=== PATIENT | female | born 1990 | race Caucasian/White ===

== ENCOUNTER 2016-08-18 15:13 | Emergency (ER) | payer OTHER ==
[2016-08-18 15:44] VITALS: BP 111/69; PULSE 90; TEMP 97.9; BMI 27.1
[2016-08-18] MEDS ORDERED: CYCLOBENZAPRINE HCL 10 MG TABLET (FP) PO ONE (16:18)
[2016-08-18] MEDS ORDERED: IBUPROFEN 400 MG TABLET (FP) PO ONE ×2 (16:18→16:22)
[2016-08-18] MEDS ORDERED: CYCLOBENZAPRINE HCL 10 MG TABLET (FP) ONE (16:22)
--- NOTE | 2016-08-18 16:25 | PDOC ---
History of Present Illness - General Chief Complaint: Cold Symptoms Stated Complaint: BACK PAIN Time Seen by Provider: 08/18/16 15:52 History Source: Patient Exam Limitations: No Limitations - History of Present Illness Initial Comments: 08/18/16 16:19 25 yr female states she had liposuction in the [place] 6 months ago and has had constant pain to her low back. Pt states she has alump to her low back told it was "extra fluid" that should drain from having massages. Pt states pain is worse when wearing high heels and lying down. Pt denies fever , no abd pain neg urine or bowel dysfunction, no saddle anesthesia or leg pain. Timing/Duration: other (5-6 months ) Past History - Past Medical History Allergies/Adverse Reactions: Allergies Allergy/AdvReac Type Severity Reaction Status Date / Time amoxicillin Allergy Intermediate Verified 08/18/16 15:41 Penicillins Allergy Mild RED & Verified 08/18/16 15:41 SWOLLEN. Home Medications: Ambulatory Orders Cyclobenzaprine HCl [Flexeril -] 10 mg PO TID PRN #21 tablet 08/18/16 Naproxen [Naprosyn -] 500 mg PO BID PRN #14 tablet 08/18/16 GI Disorders: Yes (IBS; NOT ON MEDS) Suicide Attempt (Hx): No - Surgical History Other Surgical History: 08/18/16 16:25 liposuction - Immunization History Immunization Up to Date: Yes - Psycho/Social/Smoking Cessation Hx Anxiety: Yes Suicidal Ideation: No Smoking Status: No Smoking History: Never smoked Have you smoked in the past 12 months: No Number of Cigarettes Smoked Daily: 0 Cigars Per Day: 0 Hx Alcohol Use: No Drug/Substance Use Hx: No Substance Use Type: Alcohol Review of Systems - Review of Systems Able to Perform ROS?: Yes Is the patient limited Liberian proficient: No Constitutional: No: Symptoms Reported HEENTM: No: Symptoms Reported Respiratory: No: Symptoms reported Cardiac (ROS): No: Symptoms Reported ABD/GI: No: Symptoms Reported : No: Symptoms Reported Musculoskeletal: Yes: Symptoms Reported, Back Pain Integumentary: No: Symptoms Reported Neurological: No: Symptoms reported *Physical Exam - Vital Signs Last Vital Signs Temp Pulse Resp BP Pulse Ox 97.9 F 90 20 111/69 99 08/18/16 15:42 08/18/16 15:42 08/18/16 15:42 08/18/16 15:42 08/18/16 15:42 - Physical Exam General Appearance: Yes: Nourished, Appropriately Dressed HEENT: positive: EOMI, RADHA Neck: positive: Supple. negative: Tender Respiratory/Chest: positive: Lungs Clear, Normal Breath Sounds Cardiovascular: positive: Regular Rhythm, Regular Rate Gastrointestinal/Abdominal: positive: Normal Bowel Sounds, Soft. negative: Tender Lymphatic: negative: Adenopathy Musculoskeletal: positive: Normal Inspection, Muscle Spasm (slight spasm to left lower lumbar paraspinal muscle ), Vertebral Tenderness (lumbar spine neg vetebral tenderness, multiple palpable soft tissue lumps , no fluctuance or evidence of abscess) Extremity: positive: Normal Capillary Refill, Normal Inspection, Normal Range of Motion Integumentary: positive: Normal Color, Dry, Warm, Other (skin intact, no redness no palpable fluctuance ) Neurologic: positive: Fully Oriented, Alert, Normal Mood/Affect, Normal Response , Motor Strength 11/21 ED Treatment Course - RADIOLOGY Radiology Studies Ordered: Category Date Time Status SPINE-LUMBAR ONLY [RAD] Stat Radiology 08/18/16 16:18 Ordered Medical Decision Making - Medical Decision Making 08/18/16 16:28 cc: low back pain for 5-6 months after having "aggressive liposuction in [place]" states patient. she states she had retained fluid and was told to have lymphatic drainage massages, however pt states she has noticed small lumps in her lower back that are not going away and causing pain everyday pt is requesting an MRI pt has no evidence of infection, no evidence of spinal cord damage or neurovascular compromise, pt denies numbness or tingling to legs or arms I have discussed that MRI is not indicated in the ER at this time. I will get a plain film xray and give pt medication for pain and spasm Pt has no neuro complaints, no bowel or bladder dysfunction 08/18/16 17:24 xray is negative and I have referred the patient to plastic surgery for follow up pt is ambulatory with steady gait all questions asked and answered on discharge 08/18/16 17:41 08/18/16 17:43 *DC/Admit/Observation/Transfer Diagnosis at time of Disposition: Low back pain Qualifiers: Chronicity: acute Back pain laterality: midline Sciatica presence: without sciatica Qualified Code(s): M54.5 - Low back pain - Discharge Dispostion Disposition: HOME Condition at time of disposition: Good - Prescriptions Prescriptions: Cyclobenzaprine HCl [Flexeril -] 10 mg PO TID PRN #21 tablet PRN Reason: Muscle Spasms Naproxen [Naprosyn -] 500 mg PO BID PRN #14 tablet PRN Reason: Back Pain - Referrals Referrals: Shayy Mckeon MD [Primary Care Provider] - Mark Bingham MD [Staff Physician] - - Patient Instructions Additional Instructions: follow up with your medical doctor or with the plastic surgeon take the anti inflamatory pain medicine and muscle relaxant as needed
== END 2016-08-18 17:39 | disposition home or self-care (01) ==
LOC: JERFT 15:13
DX: G89.28 Other chronic postprocedural pain (principal); M54.5 Low back pain
CPT/HCPCS: 72100-TC; 99281-25

== ENCOUNTER 2017-07-23 16:55 | Inpatient (IN) | payer OTHER ==
[2017-07-23 17:12] VITALS: BMI 29.2
[2017-07-23] MEDS ORDERED: ONDANSETRON 4 MG/2 ML VIAL ONE (17:25)
[2017-07-23] MEDS ORDERED: LORazepam 2 MG/ML SDV VIAL ONE (17:25)
[2017-07-23] MEDS ORDERED: ONDANSETRON 4 MG/2 ML VIAL IVPUSH ONE (17:25)
[2017-07-23] MEDS ORDERED: SODIUM CHLORIDE 1,000 ML IV STA (17:25)
--- NOTE | 2017-07-23 17:37 | PDOC ---
History of Present Illness - General Chief Complaint: Psychiatric Stated Complaint: ANXIETY Time Seen by Provider: 07/23/17 17:10 History Source: Patient Exam Limitations: No Limitations - History of Present Illness Initial Comments: 26-year-old female presents the emergency room with complaints of generalized anxiety, mild nausea, insomnia, and decreased appetite worsening over the past 2 days. Patient states has history of anxiety and was recently placed on Lexapro her PCP. Patient also states was drinking alcohol daily to deal with anxiety but states did not drink since yesterday and now her symptoms have worsened. Patient states works at night and feels the environment along with her lifestyle is causing his symptoms to worsen. Patient denies feelings to hurt herself or others. Timing/Duration: getting worse Severity: moderate Associated Symptoms: anxiety, insomnia Past History - Past Medical History Allergies/Adverse Reactions: Allergies amoxicillin Allergy (Intermediate, Verified 07/23/17 17:04) Penicillins Allergy (Mild, Verified 07/23/17 17:04) RED & SWOLLEN. Home Medications: Ambulatory Orders Diazepam [Valium] 5 mg PO ASDIR 07/23/17 Escitalopram Oxalate [Lexapro -] 10 mg PO DAILY 07/23/17 Psychosocial History: Yes: anxiety, panic attacks Surgical History: Yes: No Surgical History LMP: 02/28/13 - Immunization History Immunization Up to Date: Yes Tetanus Status: Less than 5 years - Social History Smoking History: No Smoking Status: Never smoked Number of Cigarettes Per Day: 0 Cigars Per Day: 0 Alcohol Use: none Drug Use: none Patient Lives Alone: No Lives With: parents *Review of Systems - Review of Systems Able to Perform ROS?: Yes Constitutional: No: Symptoms Reported HEENTM: No: Symptoms Reported Respiratory: No: Symptoms reported Cardiac (ROS): No: Symptoms Reported ABD/GI: Yes: Nausea : No: Symptoms Reported Musculoskeletal: No: Symptoms Reported Integumentary: No: Symptoms Reported Neurological: No: Symptoms reported Psychiatric: Yes: Anxiety, Stressors, Sleep Pattern Change *Physical Exam - Vital Signs Last Vital Signs Temp Pulse Resp BP Pulse Ox 97.8 F 100 H 158 H 144/79 100 07/23/17 17:04 07/23/17 17:04 07/23/17 17:04 07/23/17 17:04 07/23/17 17:04 - Physical Exam General Appearance: Yes: Nourished, Appropriately Dressed. No: Apparent Distress Neck: positive: Supple Respiratory/Chest: positive: Lungs Clear, Normal Breath Sounds. negative: Respiratory Distress, Accessory Muscle Use Cardiovascular: positive: Regular Rhythm, Tachycardia. negative: Murmur Gastrointestinal/Abdominal: positive: Soft. negative: Tenderness Extremity: positive: Normal Capillary Refill. negative: Pedal Edema Integumentary: positive: Normal Color, Warm, Moist Neurologic: positive: Normal Mood/Affect (anxious, tense, good eye contact), Motor Strength 5/5 Plan - Progress Note Progress Note: 07/23/17 17:41 Patient with history of anxiety with complaints of worsening anxiety withdrawal from alcohol, and no improvement after just briefly starting Lexapro by Dr. Mckeon yesterday. Patient also with progressively worsening waking and states her breast implants cause more discomfort due to the weight of them along with her weight gain. Patient concerning for thyroid and metabolic etiology. Patient for CBC, comp, magnesium thyroid level, urine along with Zofran at a band and fluids. Patient likely also have a mild withdrawal from alcohol and benzos 07/23/17 18:57 Case just discussed with Dr. Donald and states patient would likely benefit from benzo which are all and alcohol withdrawal and consider psychiatric rehabilitation. He is recommending to add an alcohol level and drug toxicology. 07/23/17 18:58 Laboratory Tests 07/23/17 07/23/17 07/23/17 17:39 17:39 18:30 WBC 6.8 Hgb 13.6 Hct 40.2 MCV 94.0 Plt Count 339 Neutrophils % 71.1 Sodium 140 Potassium 4.1 Chloride 107 Anion Gap 8 BUN 14 Creatinine 0.8 D Random Glucose 123 H D Calcium 9.1 Magnesium 2.2 Total Bilirubin 0.5 D AST 50 H D ALT 100 H D TSH 1.86 Serum , Qual Negative - Order(s) Order(s): Orders Medication Instructions Recorded Diazepam [Valium] 5 mg PO ASDIR 07/23/17 Escitalopram Oxalate [Lexapro -] 10 mg PO DAILY 07/23/17 Orders last 12 hours Category Date Time Status CBC WITH DIFFERENTIAL Stat Lab 07/23/17 17:25 Ordered HCG,QUALITATIVE URINE Stat Lab 07/23/17 17:25 Ordered URINALYSIS ([facility] ONLY) Stat Lab 07/23/17 17:25 Ordered - Laboratory CBC & Chemistry Diagram: 07/24/17 07:20 07/23/17 17:39 *DC/Admit/Observation/Transfer Diagnosis at time of Disposition: Anxiety, Withdrawal from benzodiazepine, Alcohol withdrawal - Referrals - Patient Instructions - Post Discharge Activity
[2017-07-23 17:46] LABS: BASO % 0.7 % (0-2.0); EOS % 1.1 % (0-4.5); HEMATOCRIT 40.2 % (32.4-45.2); HEMOGLOBIN 13.6 GM/dL (10.7-15.3); MCH 31.8 pg (25.7-33.7); MCHC 33.8 g/dl (32.0-36.0); MEAN PLT VOLUME 7.8 fl (7.5-11.1); MONO % 6.1 % (3.8-10.2); NEUT % 71.1 % (42.8-82.8); PLATELET COUNT 339 K/MM3 (134-434); RBC 4.28 M/mm3 (3.60-5.2); RDW 12.9 % (11.6-15.6); WHITE BLOOD COUNT 6.8 K/mm3 (4.0-10.0)
[2017-07-23 18:16] LABS: ALBUMIN 3.9 g/dl (3.4-5.0); ANION GAP 8 (8-16); BLOOD UREA NITROGEN 14 mg/dL (7-18); CALCIUM 9.1 mg/dL (8.5-10.1); CHLORIDE 107 mmol/L (98-107); CO2 25 mmol/L (21-32); CREATININE 0.8 mg/dL (0.55-1.02); GLUCOSE,RANDOM 123 mg/dL (74-106); MAGNESIUM 2.2 mg/dL (1.8-2.4); POTASSIUM 4.1 mmol/L (3.5-5.1); SGOT/AST 50 U/L (15-37); SGPT/ALT 100 U/L (12-78); SODIUM 140 mmol/L (136-145)
[2017-07-23 18:26] LABS: ALK PHOS 62 U/L (45-117); BILIRUBIN,TOTAL 0.5 mg/dL (0.2-1.0); TOT PROT 7.8 g/dl (6.4-8.2)
--- NOTE | 2017-07-23 18:45 | PDOC ---
*Physical Exam - Vital Signs Last Vital Signs Temp Pulse Resp BP Pulse Ox 97.8 F 100 H 158 H 144/79 100 07/23/17 17:04 07/23/17 17:04 07/23/17 17:04 07/23/17 17:04 07/23/17 17:04 ED Treatment Course - LABORATORY CBC & Chemistry Diagram: 07/23/17 17:39 07/23/17 17:39 - ADDITIONAL ORDERS Additional order review: Laboratory Results 07/23/17 07/23/17 18:30 17:39 Sodium 140 Potassium 4.1 Chloride 107 Carbon Dioxide 25 Anion Gap 8 BUN 14 Creatinine 0.8 D Creat Clearance w eGFR > 60 Random Glucose 123 H D Calcium 9.1 Magnesium 2.2 Total Bilirubin 0.5 D AST 50 H D ALT 100 H D Alkaline Phosphatase 62 Total Protein 7.8 Albumin 3.9 TSH 1.86 Serum , Qual Negative 07/23/17 17:39 RBC 4.28 MCV 94.0 MCHC 33.8 RDW 12.9 MPV 7.8 Neutrophils % 71.1 Lymphocytes % 21.0 Monocytes % 6.1 Eosinophils % 1.1 Basophils % 0.7 - Medications Given in the ED: ED Medications Discontinued Medications Generic Name Dose Route Start Last Admin Trade Name Freq PRN Reason Stop Dose Admin Sodium Chloride 1,000 mls @ 1,000 mls/hr 07/23/17 17:25 07/23/17 17:41 Normal Saline - IV 07/23/17 18:24 1,000 mls/hr ASDIR STA Administration Lorazepam 1 mg 07/23/17 17:25 07/23/17 17:41 Ativan Injection - IVPUSH 07/23/17 17:26 1 mg ONCE ONE Administration Ondansetron HCl 4 mg 07/23/17 17:25 07/23/17 17:41 Zofran Injection IVPUSH 07/23/17 17:26 4 mg ONCE ONE Administration Medical Decision Making - Medical Decision Making 07/23/17 18:45 Pt seen by the Advanced Practice Provider under my direct supervision Ancillary studies reviewed I agree with plan as outlined by the Advanced Practice Provider *DC/Admit/Observation/Transfer Diagnosis at time of Disposition: Anxiety Withdrawal from benzodiazepine Qualifiers: Complication of substance-induced condition: with unspecified complication Qualified Code(s): F13.239 - Sedative, hypnotic or anxiolytic dependence with withdrawal, unspecified Alcohol withdrawal Qualifiers: Complication of substance-induced condition: uncomplicated Qualified Code(s): F10.230 - Alcohol dependence with withdrawal, uncomplicated - Referrals - Patient Instructions - Post Discharge Activity - Attestations Physician Attestion: 07/23/17 22:00 I, Dr. Harjinder Vazquez MD, attest that this document has been prepared under my direction and personally reviewed by me in its entirety. I further attest, that it accurately reflects all work, treatment, procedures and medical decision -making performed by me.
--- NOTE | 2017-07-23 19:21 | PDOC ---
*Physical Exam - Vital Signs Last Vital Signs Temp Pulse Resp BP Pulse Ox 97.8 F 100 H 158 H 144/79 100 07/23/17 17:04 07/23/17 17:04 07/23/17 17:04 07/23/17 17:04 07/23/17 17:04 - Physical Exam General Appearance: Yes: Appropriately Dressed Cardiovascular: positive: Tachycardia Neurologic: positive: Fully Oriented, Alert ED Treatment Course - LABORATORY CBC & Chemistry Diagram: 07/23/17 17:39 07/23/17 17:39 - ADDITIONAL ORDERS Additional order review: Laboratory Results 07/23/17 07/23/17 18:30 17:39 Sodium 140 Potassium 4.1 Chloride 107 Carbon Dioxide 25 Anion Gap 8 BUN 14 Creatinine 0.8 D Creat Clearance w eGFR > 60 Random Glucose 123 H D Calcium 9.1 Magnesium 2.2 Total Bilirubin 0.5 D AST 50 H D ALT 100 H D Alkaline Phosphatase 62 Total Protein 7.8 Albumin 3.9 TSH 1.86 Serum , Qual Negative 07/23/17 17:39 RBC 4.28 MCV 94.0 MCHC 33.8 RDW 12.9 MPV 7.8 Neutrophils % 71.1 Lymphocytes % 21.0 Monocytes % 6.1 Eosinophils % 1.1 Basophils % 0.7 - Medications Given in the ED: ED Medications Discontinued Medications Generic Name Dose Route Start Last Admin Trade Name Freq PRN Reason Stop Dose Admin Sodium Chloride 1,000 mls @ 1,000 mls/hr 07/23/17 17:25 07/23/17 17:41 Normal Saline - IV 07/23/17 18:24 1,000 mls/hr ASDIR STA Administration Lorazepam 1 mg 07/23/17 17:25 07/23/17 17:41 Ativan Injection - IVPUSH 07/23/17 17:26 1 mg ONCE ONE Administration Ondansetron HCl 4 mg 07/23/17 17:25 07/23/17 17:41 Zofran Injection IVPUSH 07/23/17 17:26 4 mg ONCE ONE Administration Progress Note - Progress Note Progress Note: A: anxiety. alcohol withdrawal P: librium. IVF Medical Decision Making - Medical Decision Making 07/23/17 19:56 Patient appears anxious. reports using alcohol two days ago. patient reports everyday use of alcohol to manage anxiety . patient also reports taking xanax for anxiety 07/23/17 19:57 07/23/17 20:[address] Wilks for obs. 07/23/17 20:25 *DC/Admit/Observation/Transfer Diagnosis at time of Disposition: Anxiety Withdrawal from benzodiazepine Qualifiers: Complication of substance-induced condition: with unspecified complication Qualified Code(s): F13.239 - Sedative, hypnotic or anxiolytic dependence with withdrawal, unspecified Alcohol withdrawal Qualifiers: Complication of substance-induced condition: uncomplicated Qualified Code(s): F10.230 - Alcohol dependence with withdrawal, uncomplicated - Discharge Dispostion Admit: Yes - Referrals Referrals: Shayy Mckeon MD [Primary Care Provider] - - Patient Instructions - Post Discharge Activity
[2017-07-23] MEDS ORDERED: chlordiazePOXIDE HCL 25 MG CAPSULE PO ONE (19:44)
[2017-07-23] MEDS ORDERED: chlordiazePOXIDE HCL 25 MG CAPSULE ONE (20:09)
[2017-07-23 20:21] LABS: URINE APPEARANCE CLEAR; URINE BILIRUBIN NEGATIVE (NEGATIVE); URINE BLOOD NEGATIVE (NEGATIVE); URINE COLOR COLORLESS; URINE GLUCOSE (UA) NEGATIVE (NEGATIVE); URINE KETONE NEGATIVE (NEGATIVE); URINE LEUK ESTERASE NEGATIVE (NEGATIVE); URINE NITRITE NEGATIVE (NEGATIVE); URINE PROTEIN NEGATIVE (NEGATIVE); URINE UROBILINOGEN NEGATIVE mg/dL (0.2-1.0)
[2017-07-23 20:39] LABS: HCG,QUALITATIVE URINE NEGATIVE
[2017-07-23 20:46] LABS: COCAINE, UR NEGATIVE ng/ml (CUTOFF=300); METHADONE, UR NEGATIVE ng/ml (CUTOFF=300); OPIATES, URI NEGATIVE ng/ml (CUTOFF=300); PHENCYCLIDINE,URINE NEGATIVE ng/ml (CUTOFF=25); URINE AMPHETAMINES NEGATIVE ng/ml (CUTOFF=500); URINE BARBITURATES NEGATIVE ng/ml (CUTOFF=200); URINE BENZODIAZEPINES NEGATIVE ng/ml (CUTOFF=200)
--- NOTE | 2017-07-23 23:04 | HP ---
CHIEF COMPLAINT: Anxiety PCP: Linda HISTORY OF PRESENT ILLNESS: This is a 26 year old female with a past medical history of anxiety and depression. Pt reports that she has been increasingly anxious over the past few weeks. She was seen by Dr. Mckeon who started her on lexapro and valium PRN. She did not start either as she knew that she would be drinking excessively over the . She took her first dose of lexapro today. She is also concerned that she is in withdrawal as she stopped drinking. her last drink was late Thursday night/early Thursday morning. Today she has been increasingly anxious with 2 episodes vomiting. + nausea, + mild hand tremor at rest. ER course was notable for: (1) given ativan 1mg IVP @ 540p (2) given librium 25mg po @ 830p Recent Travel: pt denies PAST MEDICAL HISTORY: depression/anxiety PAST SURGICAL HISTORY: breast implants Social History: Smoking: pt denies Alcohol: daily one bottle of wine until yesterday Drugs: pt denies Family History: mother with anxiety depression father unk no siblings Allergies amoxicillin Allergy (Intermediate, Verified 07/23/17 17:04) Penicillins Allergy (Mild, Verified 07/23/17 17:04) RED & SWOLLEN. HOME MEDICATIONS: 3 Medication Instructions Recorded Diazepam [Valium] 5 mg PO ASDIR 07/23/17 Escitalopram Oxalate [Lexapro -] 10 mg PO DAILY 07/23/17 REVIEW OF SYSTEMS CONSTITUTIONAL: Absent: fever, chills, diaphoresis, generalized weakness, malaise, loss of appetite, weight change HEENT: Absent: rhinorrhea, nasal congestion, throat pain, throat swelling, difficulty swallowing, mouth swelling, ear pain, eye pain, visual changes CARDIOVASCULAR: Absent: chest pain, syncope, palpitations, irregular heart rate, lightheadedness , peripheral edema RESPIRATORY: Absent: cough, shortness of breath, dyspnea with exertion, orthopnea, wheezing, stridor, hemoptysis GASTROINTESTINAL: Present: nausea, vomiting Absent: abdominal pain, abdominal distension, diarrhea, constipation, melena, hematochezia GENITOURINARY: Absent: dysuria, frequency, urgency, hesitancy, hematuria, flank pain, genital pain MUSCULOSKELETAL: Absent: myalgia, arthralgia, joint swelling, back pain, neck pain SKIN: Absent: rash, itching, pallor HEMATOLOGIC/IMMUNOLOGIC: Absent: easy bleeding, easy bruising, lymphadenopathy, frequent infections ENDOCRINE: Absent: unexplained weight gain, unexplained weight loss, heat intolerance, cold intolerance NEUROLOGIC: Absent: headache, focal weakness or paresthesias, dizziness, unsteady gait, seizure, mental status changes, bladder or bowel incontinence PSYCHIATRIC: Present: anxiety Absent: depression, suicidal or homicidal ideation, hallucinations. PHYSICAL EXAMINATION Vital Signs - 24 hr 3 07/23/17 17:04 Temperature 97.8 F Pulse Rate 100 H Respiratory 158 H Rate Blood Pressure 144/79 O2 Sat by Pulse 100 Oximetry (%) GENERAL: Awake, alert, and fully oriented, in no acute distress. HEAD: Normal with no signs of trauma. EYES: Pupils equal, round and reactive to light, extraocular movements intact, sclera anicteric, conjunctiva clear. No lid lag. EARS, NOSE, THROAT: Ears normal, nares patent, oropharynx clear without exudates. Moist mucous membranes. NECK: Normal range of motion, supple without lymphadenopathy, JVD, or masses. LUNGS: Breath sounds equal, clear to auscultation bilaterally. No wheezes, and no crackles. No accessory muscle use. HEART: Regular rate and rhythm, normal S1 and S2 without murmur, rub or gallop. ABDOMEN: Soft, nontender, not distended, normoactive bowel sounds, no guarding, no rebound, no masses. No hepatomegaly or splenomegaly. MUSCULOSKELETAL: Normal range of motion at all joints. No bony deformities or tenderness. No CVA tenderness. UPPER EXTREMITIES: 2+ pulses, warm, well-perfused. No cyanosis. No clubbing. No peripheral edema. LOWER EXTREMITIES: 2+ pulses, warm, well-perfused. No calf tenderness. No peripheral edema. NEUROLOGICAL: Cranial nerves II-XII intact. Normal speech. Normal gait. mild tremor noted to hands with outstretched hands PSYCHIATRIC: Cooperative. Good eye contact. Appropriate mood and affect. SKIN: Warm, dry, normal turgor, no rashes or lesions noted, normal capillary refill. Laboratory Results - last 24 hr 3 07/23/17 07/23/17 07/23/17 17:39 17:39 18:30 WBC 6.8 RBC 4.28 Hgb 13.6 Hct 40.2 MCV 94.0 MCH 31.8 MCHC 33.8 RDW 12.9 Plt Count 339 MPV 7.8 Neutrophils % 71.1 Lymphocytes % 21.0 Monocytes % 6.1 Eosinophils % 1.1 Basophils % 0.7 Sodium 140 Potassium 4.1 Chloride 107 Carbon Dioxide 25 Anion Gap 8 BUN 14 Creatinine 0.8 D Creat Clearance w eGFR > 60 Random Glucose 123 H D Calcium 9.1 Magnesium 2.2 Total Bilirubin 0.5 D AST 50 H D ALT 100 H D Alkaline Phosphatase 62 Total Protein 7.8 Albumin 3.9 TSH 1.86 Serum , Qual Negative Urine Color Urine Appearance Urine pH Ur Specific [place] Urine Protein Urine Glucose (UA) Urine Ketones Urine Blood Urine Nitrite Urine Bilirubin Urine Urobilinogen Urine HCG, Qual Opiates Screen Methadone Screen Barbiturate Screen Phencyclidine Screen Ur Amphetamines Screen MDMA (Ecstasy) Screen Benzodiazepines Screen Cocaine Screen U Marijuana (THC) Screen Alcohol, Quantitative 3 07/23/17 07/23/17 07/23/17 19:30 20:00 20:00 WBC RBC Hgb Hct MCV MCH MCHC RDW Plt Count MPV Neutrophils % Lymphocytes % Monocytes % Eosinophils % Basophils % Sodium Potassium Chloride Carbon Dioxide Anion Gap BUN Creatinine Creat Clearance w eGFR Random Glucose Calcium Magnesium Total Bilirubin AST ALT Alkaline Phosphatase Total Protein Albumin TSH Serum , Qual Urine Color Colorless Urine Appearance Clear Urine pH 6.0 Ur Specific [place] 1.006 Urine Protein Negative Urine Glucose (UA) Negative Urine Ketones Negative Urine Blood Negative Urine Nitrite Negative Urine Bilirubin Negative Urine Urobilinogen Negative Urine HCG, Qual Negative Opiates Screen Negative Methadone Screen Negative Barbiturate Screen Negative Phencyclidine Screen Negative Ur Amphetamines Screen Negative MDMA (Ecstasy) Screen Negative Benzodiazepines Screen Negative Cocaine Screen Negative U Marijuana (THC) Screen Negative Alcohol, Quantitative < 5.0 ASSESSMENT/PLAN: 26yF with PMH anxiety/depression presented to the ED with anxiety and possible ETOH withdrawal. anxiety - feeling slightly better after ativan - will monitor off further benzos as they will mask withdrawal - hydroxyzine 25mg q6h prn for anxiety - cont lexapro Possible ETOH withdrawal - current CIWA score 6 - will monitor off benzos - start librium protocol if score rises Palipitations - HR regular, will order ECG DVT PPX - deferred as anticipated LOS <48h FEN - pt requesting IVF, will give 100cc/hr x 1 more liter - bmp in am - regular diet as tolerated Dispo: pt currently requires overnight monitoring for management of her emergent condition. Addendum: 0400 Pt reassessed. CIWA score now 4, last benzo was librium at 830PM. Reports feeling anxious and having trouble sleeping. Long discussion with pt and mother regarding risks/benefits of benzos including risk of abuse and addiction potential, especially given her drinking. Discussed using hydroxyzine instead and they agreed to try it. Will give hydroxyzine. Doubtful if pt in alcohol withdrawal. Pt is very concerned about her breast implants. She states that she had them placed and then gained weight and now they are very heavy and she feels as if she has 15 pounds sitting on her chest when she lays on her back. She wants them removed. She is requesting plastic surgery consult. I advised her and her mother as this is not an urgent matter it should be done as an outpatient and there is no current indication for inpatient plastic surgery consult. They understood. Visit type - Emergency Visit Emergency Visit: Yes ED Registration Date: 07/23/17 Care time: The patient presented to the Emergency Department on the above date and was hospitalized for further evaluation of their emergent condition. - New Patient This patient is new to me today: Yes Date on this admission: 07/24/17 - Critical Care Critical Care patient: No
[2017-07-24] MEDS: SODIUM CHLORIDE 1,000 ML IV SCH ×2 (00:22→23:28)
[2017-07-24] MEDS: hydrOXYzine HCL 25 MG TABLET (FP) PO PRN (04:49)
[2017-07-24 07:37] LABS: BASO % 0.5 % (0-2.0); EOS % 0.8 % (0-4.5); HEMATOCRIT 36.6 % (32.4-45.2); HEMOGLOBIN 12.3 GM/dL (10.7-15.3); LYMPH % 24.6 % (8-40); MCH 31.6 pg (25.7-33.7); MCHC 33.5 g/dl (32.0-36.0); MEAN CELL VOLUME 94.5 fl (80-96); MEAN PLT VOLUME 7.9 fl (7.5-11.1); MONO % 6.2 % (3.8-10.2); NEUT % 67.9 % (42.8-82.8); PLATELET COUNT 306 K/MM3 (134-434); RBC 3.88 M/mm3 (3.60-5.2); RDW 12.7 % (11.6-15.6); WHITE BLOOD COUNT 10.1 K/mm3 (4.0-10.0)
[2017-07-24 08:55] LABS: ANION GAP 11 (8-16); BLOOD UREA NITROGEN 12 mg/dL (7-18); CALCIUM 8.6 mg/dL (8.5-10.1); CHLORIDE 107 mmol/L (98-107); CO2 23 mmol/L (21-32); CREATININE 0.8 mg/dL (0.55-1.02); GLUCOSE,RANDOM 89 mg/dL (74-106); MAGNESIUM 2.1 mg/dL (1.8-2.4); PHOSPHOROUS 4.2 mg/dL (2.5-4.9); POTASSIUM 3.9 mmol/L (3.5-5.1); SODIUM 141 mmol/L (136-145)
--- NOTE | 2017-07-24 10:25 | EKG ---
Test Reason : Blood Pressure : / mmHG Vent. Rate : 088 BPM Atrial Rate : 088 BPM P-R Int : 136 ms QRS Dur : 086 ms QT Int : 360 ms P-R-T Axes : 019 033 010 degrees QTc Int : 435 ms NORMAL SINUS RHYTHM NORMAL ECG WHEN COMPARED WITH ECG OF 26-DEC-2014 11:23, NO SIGNIFICANT CHANGE WAS FOUND Confirmed by DUSTIN CHAN MD ([id number]) on 07/24/2017 10:25:06 AM Referred By: Confirmed By:DUSTIN CHAN MD
[2017-07-24] MEDS: ESCITALOPRAM OXALATE 10 MG TABLET (FP) PO SCH (10:35)
--- NOTE | 2017-07-24 12:46 | CON.PSY ---
Psychiatry Consult Chief Complaint: Patient with a history of Alcohol abuse , agarophobia. Came ahsan with acute anxirty and agitation. patient seen and spoke to her MOM. Symptoms: reports: Irritability, Anxiety, Panic Attacks - Previous Psychiatric Treatment Outpatient: Less than 6 mos ago Inpatient: None - Previous Substance Abuse Treatment Outpatient: None Inpatient: None - Reason for Previous Treatment Reason for Previous Treatment: Anxiety or Panic Disorder - Current Medications Current Medications: Active Medications Escitalopram Oxalate (Lexapro -) 10 mg PO DAILY [facility] Last Admin: 07/24/17 10:35 Dose: 10 mg Hydroxyzine HCl (Atarax -) 25 mg PO Q6H PRN PRN Reason: FOR ITCHING Last Admin: 07/24/17 04:49 Dose: 25 mg Sodium Chloride (Normal Saline -) 1,000 mls @ 100 mls/hr IV ASDIR [facility] Last Admin: 07/24/17 00:22 Dose: 100 mls/hr - Allergies Allergies: Allergies Allergy/AdvReac Type Severity Reaction Status Date / Time amoxicillin Allergy Intermediate Verified 07/23/17 17:04 Penicillins Allergy Mild RED & Verified 07/23/17 17:04 SWOLLEN. - Current Living Status Usual Living Arrangement: With Parent - Current Mental Status Evaluation Appearance: Well Groomed Attitude: Cooperative - Affect Affect: Full Range, Constrictive Appropriateness: Appropriate to Content - Mood Mood: Anxious - Speech/Language Expressive: Coherent - Psychomotor Activity Psychomotor Activity: Normal - Thought Process Thought Process: Intact - Thought Content Hallucinations: Absent Delusions: Absent - Self Perception Self Perception: No Impairment - Cognition Attention: Alert Orientation: Time Memory, Immediate Recall: Intact Memory, Short Term: 3/3 Memory, Remote with Promptin/3 - Concentration Serial Sevens Intact: No Simple Calculations Intact: No - Abstraction Proverb Interpretation: Intact Judgement: Minimally Impaired - Insight Insight: Intact - Impulse Control Impulse Control: Minimally Impaired - Suicidal Ideation Suicidal Ideation: No - Homicidal Ideation Homicidal Ideation: No Assessment/Plan 1) continue with Lexapro. 2) Librium 25mg po od (10 tabs) 3) Follow up with Pvt therapist for anxiety
[2017-07-24] MEDS ORDERED: chlordiazePOXIDE HCL 25 MG CAPSULE PO ONE (13:20)
[2017-07-24] MEDS ORDERED: chlordiazePOXIDE HCL 25 MG CAPSULE ONE ×2 (13:22→17:24)
[2017-07-24] MEDS ORDERED: ACETAMINOPHEN 325 MG TABLET (FP) PO PRN (13:33)
--- NOTE | 2017-07-24 13:35 | PN ---
Progress Note, Physician Chief Complaint: ANXIOUS AND CRYING EXTREMELY LABILE MOM AND BOYFRIEND BEDSIDE - Current Medication List Current Medications: Active Medications Escitalopram Oxalate (Lexapro -) 10 mg PO DAILY [facility] Last Admin: 07/24/17 10:35 Dose: 10 mg Hydroxyzine HCl (Atarax -) 25 mg PO Q6H PRN PRN Reason: FOR ITCHING Last Admin: 07/24/17 04:49 Dose: 25 mg Sodium Chloride (Normal Saline -) 1,000 mls @ 100 mls/hr IV ASDIR [facility] Last Admin: 07/24/17 00:22 Dose: 100 mls/hr - Objective Vital Signs: Vital Signs Temperature 98.2 F 07/24/17 09:11 Pulse Rate 80 07/24/17 09:11 Respiratory Rate 18 07/24/17 09:11 Blood Pressure 110/64 07/24/17 09:11 O2 Sat by Pulse Oximetry (%) 99 07/24/17 09:11 Constitutional: Yes: Anxious, Moderate Distress Eyes: Yes: WNL HENT: Yes: WNL Neck: Yes: WNL Cardiovascular: Yes: WNL Respiratory: Yes: WNL Gastrointestinal: Yes: WNL Genitourinary: Yes: WNL Musculoskeletal: Yes: WNL Extremities: Yes: WNL Edema: No Peripheral Pulses WNL: Yes Integumentary: Yes: WNL Wound/Incision: Yes: Clean/Dry Neurological: Yes: WNL ...Motor Strength: WNL Psychiatric: Yes: WNL Labs: CBC, BMP 07/24/17 07:20 07/24/17 07:20 Problem List - Problems (1) Alcohol dependence with uncomplicated withdrawal Code(s): F10.230 - ALCOHOL DEPENDENCE WITH WITHDRAWAL, UNCOMPLICATED (2) Alcohol withdrawal Code(s): F10.239 - ALCOHOL DEPENDENCE WITH WITHDRAWAL, UNSPECIFIED Qualifiers: Complication of substance-induced condition: uncomplicated Qualified Code(s ): F10.230 - Alcohol dependence with withdrawal, uncomplicated (3) Anxiety Code(s): F41.9 - ANXIETY DISORDER, UNSPECIFIED (4) Elevated LFTs Code(s): R79.89 - OTHER SPECIFIED ABNORMAL FINDINGS OF BLOOD CHEMISTRY (5) Anxiety Code(s): F41.9 - ANXIETY DISORDER, UNSPECIFIED Assessment/Plan LIBRIUM PROTOCOL THIAMINE AND FOLIC ACID PSYCHOLOGY AND PSYCHIATRY F/U DETOX REFERRAL DR VENTURA
[2017-07-24] MEDS ORDERED: THIAMINE HCL 100 MG TABLET (FP) PO SCH (13:45)
--- NOTE | 2017-07-24 14:50 | CONSULT ---
Consult Detox [facility] Reason for Current Admission/Consult: alcohol use Referred by:: Shayy Mckeon md - History History of Present Illness: 26 yo f with h/o anxiety disorder and daily alcohol use admitted 2 days after starting lexapro for anxiety when she became acutely anxious, came to ed with panic attack,not respoonsive to ativan iv, libroum started with good effect and admitted for alcohol detoxification. Patient sedated, difficult to obtain full history but mother at bedside. 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 no suicide attmepts in past, no suicidal ideation at this time reported. no illicit drug use or drug treatment in past, no psychiatric history other than anxiety. elevated lfts noted, 2/2 alcohol use? - History Source History Provided By: Patient, Family Member, Medical Record, Caregiver Limitations to Obtaining History: No Limitations - Alcohol/Substance Use Hx Alcohol Use: Yes Hx Substance Use: No Hx Substance Use Treatment: No - Current Drug/Alcohol Use Alcohol Route: Oral Frequency: Daily Date of Last Use: 07/21/17 CIWA Score - CIWA Score Nausea/Vomitin-No Nausea/No Vomiting Muscle Tremors: None Anxiety: 3 Agitation: 0-Normal Activity Paroxysmal Sweats: No Perspiration Orientation: 0-Oriented Tacttile Disturbances: 0-None Auditory Disturbances: 0-None Visual Disturbances: 0-None Headache: 0-None Present CIWA-Ar Total Score: 3 Assessment Plan - Diagnosis (1) Alcohol dependence with uncomplicated withdrawal Status: Acute (2) Anxiety Status: Acute (3) Elevated LFTs Status: Acute - Plan Plan: chart , imaging, labs reviewed, case discussec with medical providers, patient examined and histroy taken. 26 yo f with h/o anxiety disorder, panic attacks and daily alcohol use worsening over holidays, was given ativan in ed but not effective then started on librium detox and now comfortable, somewhat sedated. Las have elvated lfts most likely 2/2 alcohol use. Would continue detox with lower doses of libirum, hydration and vitamins. anxiety attacks may be triggered by starting lexapro, libirum will also treat this, would continue SSRI, titirate to effective dose and follow up intensive outpatient therapy with mental health counselor specializing in substance use disorders and anxiety. d/w mother with patient s consent will follow up with insurance. - Medication Detox Regimen/Protocol: Maria A
[2017-07-24] MEDS ORDERED: chlordiazePOXIDE HCL 25 MG CAPSULE PO PRN (15:15)
[2017-07-24] MEDS ORDERED: ZOLPIDEM TARTRATE 5 MG TABLET PO PRN (15:38)
[2017-07-24] MEDS ORDERED: FOLIC ACID 1 MG TABLET (FP) ONE (15:58)
[2017-07-24] MEDS: FOLIC ACID 1 MG TABLET (FP) PO SCH (16:28)
[2017-07-24] MEDS ORDERED: chlordiazePOXIDE HCL 25 MG CAPSULE PO SCH ×2 (17:00→18:00)
[2017-07-24] MEDS: chlordiazePOXIDE HCL 25 MG CAPSULE PO SCH ×2 (18:01→22:28)
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
[2017-07-24] MEDS: THIAMINE HCL 100 MG TABLET (FP) PO SCH (22:28)
[2017-07-25] MEDS: chlordiazePOXIDE HCL 25 MG CAPSULE PO SCH ×2 (04:34→12:11)
--- NOTE | 2017-07-25 08:10 | PN ---
Progress Note, Physician History of Present Illness: C/O INSOMNIA - Current Medication List Current Medications: Active Medications Acetaminophen (Tylenol -) 650 mg PO Q6H PRN PRN Reason: FEVER OR PAIN Last Admin: 07/25/17 04:44 Dose: 650 mg Chlordiazepoxide HCl (Librium -) 25 mg PO Q4H PRN PRN Reason: WITHDRAWAL(CONT SUBST) Stop: 07/27/17 15:14 Chlordiazepoxide HCl (Librium -) 5 mg PO [id number] [facility] Stop: 07/27/17 11:01 Chlordiazepoxide HCl (Librium -) 25 mg PO [id number] [facility] Stop: 07/25/17 11:01 Last Admin: 07/25/17 04:34 Dose: 25 mg Chlordiazepoxide HCl (Librium -) 15 mg PO [id number] [facility] Stop: 07/26/17 11:01 Escitalopram Oxalate (Lexapro -) 10 mg PO DAILY [facility] Last Admin: 07/24/17 10:35 Dose: 10 mg Folic Acid (Folic Acid -) 1 mg PO DAILY [facility] Last Admin: 07/24/17 16:28 Dose: 1 mg Hydroxyzine HCl (Atarax -) 25 mg PO Q6H PRN PRN Reason: FOR ITCHING Last Admin: 07/24/17 04:49 Dose: 25 mg Sodium Chloride (Normal Saline -) 1,000 mls @ 100 mls/hr IV ASDIR [facility] Last Admin: 07/24/17 23:28 Dose: 100 mls/hr Multivit/Folic Acid/Iron ( Vitamins (Sjr) -) 1 tab PO DAILY [facility] Thiamine HCl (Vitamin B1 -) 100 mg PO HS [facility] Last Admin: 07/24/17 22:28 Dose: 100 mg Zolpidem Tartrate (Ambien -) 10 mg PO HS PRN PRN Reason: INSOMNIA - Objective Vital Signs: Vital Signs Temperature 97.7 F 07/25/17 06:00 Pulse Rate 52 L 07/25/17 06:00 Respiratory Rate 18 07/25/17 06:00 Blood Pressure 109/52 07/25/17 06:00 O2 Sat by Pulse Oximetry (%) 98 07/24/17 22:00 Cardiovascular: Yes: Regular Rate and Rhythm Respiratory: Yes: Regular, CTA Bilaterally Gastrointestinal: Yes: Normal Bowel Sounds, Soft Labs: CBC, BMP 07/24/17 07:20 07/24/17 07:20 Problem List - Problems (1) Alcohol dependence with uncomplicated withdrawal Assessment/Plan: ON LIBRIUM [facility] NOTED Code(s): F10.230 - ALCOHOL DEPENDENCE WITH WITHDRAWAL, UNCOMPLICATED (2) Anxiety Assessment/Plan: MONITOR Code(s): F41.9 - ANXIETY DISORDER, UNSPECIFIED
[2017-07-25] MEDS ORDERED: MULTIVITAMINS (DAILY MVI) TABLET (FP) PO SCH (10:00)
[2017-07-25] MEDS: FOLIC ACID 1 MG TABLET (FP) PO SCH ×2 (10:06→18:09)
[2017-07-25] MEDS: ESCITALOPRAM OXALATE 10 MG TABLET (FP) PO SCH ×2 (10:07→18:09)
[2017-07-25] MEDS: PRENATAL VITAMINS W/ FOLIC ACID TABLET (FP) PO SCH ×2 (10:08→17:07)
[2017-07-25] MEDS ORDERED: chlordiazePOXIDE HCL 25 MG CAPSULE PO SCH (17:00)
[2017-07-25] MEDS: chlordiazePOXIDE 5 MG CAPSULE PO SCH ×2 (17:04→23:50)
[2017-07-25] MEDS: hydrOXYzine HCL 25 MG TABLET (FP) PO PRN (21:09)
[2017-07-25] MEDS: THIAMINE HCL 100 MG TABLET (FP) PO SCH (21:10)
[2017-07-26] MEDS: SODIUM CHLORIDE 1,000 ML IV SCH ×2 (01:59→02:21)
[2017-07-26] MEDS: chlordiazePOXIDE 5 MG CAPSULE PO SCH ×4 (05:29→23:17)
--- NOTE | 2017-07-26 09:40 | PN ---
Progress Note, Physician History of Present Illness: C/O INSOMNIA - Current Medication List Current Medications: Active Medications Acetaminophen (Tylenol -) 650 mg PO Q6H PRN PRN Reason: FEVER OR PAIN Last Admin: 07/25/17 04:44 Dose: 650 mg Chlordiazepoxide HCl (Librium -) 25 mg PO Q4H PRN PRN Reason: WITHDRAWAL(CONT SUBST) Stop: 07/27/17 15:14 Chlordiazepoxide HCl (Librium -) 5 mg PO [id number] [facility] Stop: 07/27/17 11:01 Chlordiazepoxide HCl (Librium -) 15 mg PO [id number] [facility] Stop: 07/26/17 11:01 Last Admin: 07/26/17 05:29 Dose: 15 mg Escitalopram Oxalate (Lexapro -) 10 mg PO DAILY [facility] Last Admin: 07/25/17 18:09 Dose: 10 mg Folic Acid (Folic Acid -) 1 mg PO DAILY [facility] Last Admin: 07/25/17 18:09 Dose: 1 mg Hydroxyzine HCl (Atarax -) 25 mg PO Q6H PRN PRN Reason: FOR ITCHING Last Admin: 07/25/17 21:09 Dose: 25 mg Sodium Chloride (Normal Saline -) 1,000 mls @ 100 mls/hr IV ASDIR [facility] Last Admin: 07/26/17 02:21 Dose: 100 mls/hr Multivit/Folic Acid/Iron ( Vitamins (Sjr) -) 1 tab PO DAILY [facility] Last Admin: 07/25/17 17:07 Dose: 1 tab Thiamine HCl (Vitamin B1 -) 100 mg PO HS [facility] Last Admin: 07/25/17 21:10 Dose: 100 mg Zolpidem Tartrate (Ambien -) 10 mg PO HS PRN PRN Reason: INSOMNIA Last Admin: 07/26/17 02:06 Dose: 10 mg - Objective Vital Signs: Vital Signs Temperature 98.2 F 07/26/17 06:12 Pulse Rate 74 07/26/17 06:12 Respiratory Rate 20 07/26/17 06:12 Blood Pressure 114/64 07/26/17 06:12 O2 Sat by Pulse Oximetry (%) 97 07/26/17 06:00 Labs: CBC, BMP 07/24/17 07:20 07/24/17 07:20 Problem List - Problems (1) Alcohol dependence with uncomplicated withdrawal Assessment/Plan: ON LIBRIUM [facility] NOTED Code(s): F10.230 - ALCOHOL DEPENDENCE WITH WITHDRAWAL, UNCOMPLICATED (2) Anxiety Assessment/Plan: MONITOR INCREASE LEAXAPRO 20 QD DISCUSSED WITH PATIENT AND MOTHER Code(s): F41.9 - ANXIETY DISORDER, UNSPECIFIED
[2017-07-26] MEDS ORDERED: PT OWN MED DRAWER 7, Y5N ONE (09:59)
[2017-07-26] MEDS: FOLIC ACID 1 MG TABLET (FP) PO SCH (11:17)
[2017-07-26] MEDS: ESCITALOPRAM OXALATE 10 MG TABLET (FP) PO SCH (11:18)
[2017-07-26] MEDS: PRENATAL VITAMINS W/ FOLIC ACID TABLET (FP) PO SCH (11:18)
[2017-07-26] MEDS ORDERED: chlordiazePOXIDE 5 MG CAPSULE PO SCH (17:00)
[2017-07-27] MEDS: chlordiazePOXIDE 5 MG CAPSULE PO SCH ×3 (06:52→15:37)
[2017-07-27] MEDS: SODIUM CHLORIDE 1,000 ML IV SCH (09:09)
[2017-07-27] MEDS: THIAMINE HCL 100 MG TABLET (FP) PO SCH (09:09)
[2017-07-27] MEDS ORDERED: PT OWN MED DRAWER 7, Y5N ONE (09:37)
[2017-07-27] MEDS: ESCITALOPRAM OXALATE 10 MG TABLET (FP) PO SCH (09:39)
[2017-07-27] MEDS: FOLIC ACID 1 MG TABLET (FP) PO SCH (09:39)
[2017-07-27] MEDS: PRENATAL VITAMINS W/ FOLIC ACID TABLET (FP) PO SCH (09:41)
--- NOTE | 2017-07-27 12:42 | DS ---
Physical Examination Vital Signs: Vital Signs Temperature 97.5 F L 07/27/17 06:00 Pulse Rate 69 07/27/17 06:00 Respiratory Rate 20 07/27/17 06:00 Blood Pressure 104/52 07/27/17 06:00 O2 Sat by Pulse Oximetry (%) 97 07/26/17 14:00 Constitutional: Yes: Calm Neck: Yes: Trachea Midline Cardiovascular: Yes: Regular Rate and Rhythm, S1, S2 Respiratory: Yes: CTA Bilaterally Gastrointestinal: Yes: Normal Bowel Sounds, Soft Edema: No Neurological: Yes: Alert, Oriented Labs: CBC, BMP 07/24/17 07:20 07/24/17 07:20 Discharge Summary Reason For Visit: ANXIETY Current Active Problems Alcohol dependence with uncomplicated withdrawal (Acute) Alcohol withdrawal (Acute) Anxiety (Acute) Elevated LFTs (Acute) Withdrawal from benzodiazepine (Acute) Hospital Course: PCP: Linda HISTORY OF PRESENT ILLNESS: This is a 26 year old female with a past medical history of anxiety and depression. Pt reports that she has been increasingly anxious over the past few weeks. She was seen by Dr. Mckeon who started her on lexapro and valium PRN. She did not start either as she knew that she would be drinking excessively over the . She took her first dose of lexapro today. She is also concerned that she is in withdrawal as she stopped drinking. her last drink was late Thursday night/early Thursday morning. Today she has been increasingly anxious with 2 episodes vomiting. + nausea, + mild hand tremor at rest. ER course was notable for: (1) given ativan 1mg IVP @ 540p (2) given librium 25mg po @ 830p on librium protocol, thiamine folate and started on lexapro now ready to go home and to follow up with her therapist Condition: Improved - Instructions Referrals: Shayy Mckeon MD [Primary Care Provider] - - Home Medications Comprehensive Discharge Medication List: Ambulatory Orders Diazepam [Valium] 5 mg PO ASDIR 07/23/17 Escitalopram Oxalate [Lexapro -] 10 mg PO DAILY 07/23/17
--- NOTE | 2017-07-27 15:16 | PN ---
[facility] Progress Note (SOAP) Subjective: still feeling anxieotu, completed detox, lexapro raised to 20mg daily , d/c home today Objective: 07/27/17 15:13 Laboratory Tests 07/23/17 07/23/17 07/23/17 17:39 17:39 18:30 WBC 6.8 RBC 4.28 Hgb 13.6 Hct 40.2 MCV 94.0 MCH 31.8 MCHC 33.8 RDW 12.9 Plt Count 339 MPV 7.8 Neutrophils % 71.1 Lymphocytes % 21.0 Monocytes % 6.1 Eosinophils % 1.1 Basophils % 0.7 Sodium 140 Potassium 4.1 Chloride 107 Carbon Dioxide 25 Anion Gap 8 BUN 14 Creatinine 0.8 D Creat Clearance w eGFR > 60 Random Glucose 123 H D Calcium 9.1 Phosphorus Magnesium 2.2 Total Bilirubin 0.5 D AST 50 H D ALT 100 H D Alkaline Phosphatase 62 Total Protein 7.8 Albumin 3.9 TSH 1.86 Serum , Qual Negative Urine Color Urine Appearance Urine pH Ur Specific [place] Urine Protein Urine Glucose (UA) Urine Ketones Urine Blood Urine Nitrite Urine Bilirubin Urine Urobilinogen Urine HCG, Qual Opiates Screen Methadone Screen Barbiturate Screen Phencyclidine Screen Ur Amphetamines Screen MDMA (Ecstasy) Screen Benzodiazepines Screen Cocaine Screen U Marijuana (THC) Screen Alcohol, Quantitative 07/23/17 07/23/17 07/23/17 19:30 20:00 20:00 WBC RBC Hgb Hct MCV MCH MCHC RDW Plt Count MPV Neutrophils % Lymphocytes % Monocytes % Eosinophils % Basophils % Sodium Potassium Chloride Carbon Dioxide Anion Gap BUN Creatinine Creat Clearance w eGFR Random Glucose Calcium Phosphorus Magnesium Total Bilirubin AST ALT Alkaline Phosphatase Total Protein Albumin TSH Serum , Qual Urine Color Colorless Urine Appearance Clear Urine pH 6.0 Ur Specific [place] 1.006 Urine Protein Negative Urine Glucose (UA) Negative Urine Ketones Negative Urine Blood Negative Urine Nitrite Negative Urine Bilirubin Negative Urine Urobilinogen Negative Urine HCG, Qual Negative Opiates Screen Negative Methadone Screen Negative Barbiturate Screen Negative Phencyclidine Screen Negative Ur Amphetamines Screen Negative MDMA (Ecstasy) Screen Negative Benzodiazepines Screen Negative Cocaine Screen Negative U Marijuana (THC) Screen Negative Alcohol, Quantitative < 5.0 07/24/17 07/24/17 07:20 07:20 WBC 10.1 H D RBC 3.88 Hgb 12.3 Hct 36.6 MCV 94.5 MCH 31.6 MCHC 33.5 RDW 12.7 Plt Count 306 MPV 7.9 Neutrophils % 67.9 Lymphocytes % 24.6 Monocytes % 6.2 Eosinophils % 0.8 Basophils % 0.5 Sodium 141 Potassium 3.9 Chloride 107 Carbon Dioxide 23 Anion Gap 11 BUN 12 Creatinine 0.8 Creat Clearance w eGFR Random Glucose 89 D Calcium 8.6 Phosphorus 4.2 Magnesium 2.1 Total Bilirubin AST ALT Alkaline Phosphatase Total Protein Albumin TSH Serum , Qual Urine Color Urine Appearance Urine pH Ur Specific [place] Urine Protein Urine Glucose (UA) Urine Ketones Urine Blood Urine Nitrite Urine Bilirubin Urine Urobilinogen Urine HCG, Qual Opiates Screen Methadone Screen Barbiturate Screen Phencyclidine Screen Ur Amphetamines Screen MDMA (Ecstasy) Screen Benzodiazepines Screen Cocaine Screen U Marijuana (THC) Screen Alcohol, Quantitative no tremors, and aox3, seems somewhat sedated and elthargic no signs of withdrawal, still anxious Assessment: 07/27/17 15:14 alcohol use disorder , severe - report drinking a bottle of wine each night to go to sleep anxiety - started n lexapro now on max dose, still anxious, may need sedative to sleep when she goes home. f/u arranged for addiction medicine psychologist who specilaizes in alcoholism andwill follow with therapist, repeat lfts and other labwork 1 month after she stops all alcohol use to check if they labs revert to normal mother and patient informed. Gallo Holley MD [phone]
[2017-07-27] MEDS ORDERED: chlordiazePOXIDE 5 MG CAPSULE PO ONE (15:29)
[2017-07-27 16:06] VITALS: BP 90/59; PULSE 54; TEMP 98.2
== END 2017-07-27 16:34 | disposition home or self-care (01) | DRG 880 ==
LOC: JER 16:55 → JERBED 20:23 → OBSVTOIN 07-24 13:32 → J8W 07-24 17:00
PROVIDERS: ADMIT Family Medicine; ATTEND Family Medicine
PROC: HZ2ZZZZ Detoxification Services for Substance Abuse Treatment (ICD-10-PCS; principal; 2017-07-23)
DX: F41.0 Panic disorder [episodic paroxysmal anxiety] (principal); F13.239 Sedative, hypnotic or anxiolytic dependence with withdrawal, unspecified; F10.230 Alcohol dependence with withdrawal, uncomplicated; G47.09 Other insomnia; R11.0 Nausea; Z88.0 Allergy status to penicillin; R00.2 Palpitations; R79.89 Other specified abnormal findings of blood chemistry; M54.5 Low back pain; F32.9 Major depressive disorder, single episode, unspecified
CPT/HCPCS: 36415; 80048; 80053; 80307; 81003; 83735; 84100; 84443; 84703; 85025; 93005; 93010; 99284-25; G0378

== ENCOUNTER 2020-09-19 23:18 | Emergency (ER) | payer OTHER ==
[2020-09-19 23:33] VITALS: BP 138/91; PULSE 95; TEMP 98.3; BMI 36.0
[2020-09-20] MEDS ORDERED: DEXAMETHASONE SOD PHOSPHATE 10 MG/1 ML VIAL IVPUSH ONE (00:58)
[2020-09-20] MEDS ORDERED: DEXAMETHASONE 4 MG TABLET (FP) PO ONE (01:02)
[2020-09-20] MEDS ORDERED: IBUPROFEN 600 MG TABLET (FP) PO ONE (01:02)
[2020-09-20 01:09] LABS: BASO % 1.2 % (0-2.0); EOS % 0.5 % (0-4.5); HEMATOCRIT 39.1 % (32.4-45.2); HEMOGLOBIN 13.3 GM/dL (10.7-15.3); MCH 31.9 pg (25.7-33.7); MEAN CELL VOLUME 93.7 fl (80-96); NEUT % 64.3 % (42.8-82.8); PLATELET COUNT 366 K/MM3 (134-434); RBC 4.17 M/mm3 (3.60-5.2); WHITE BLOOD COUNT 9.9 K/mm3 (4.0-10.0)
[2020-09-20 02:27] LABS: POTASSIUM 4.1 mmol/L (3.5-5.1)
[2020-09-20 02:29] LABS: CALCIUM 9.6 mg/dL (8.5-10.1)
[2020-09-20 02:31] LABS: ALBUMIN 4.3 g/dl (3.4-5.0); BLOOD UREA NITROGEN 14.9 mg/dL (7-18)
[2020-09-20 02:33] LABS: CREATININE 0.7 mg/dL (0.55-1.3)
[2020-09-20 02:34] LABS: BILIRUBIN,TOTAL 0.2 mg/dL (0.2-1); TOT PROT 8.4 g/dl (6.4-8.2)
== END 2020-09-20 02:52 | disposition home or self-care (01) ==
LOC: JER 23:18
PROC: 3E033NZ Introduction of Analgesics, Hypnotics, Sedatives into Peripheral Vein, Percutaneous Approach (ICD-10-PCS; principal; 2020-09-19)
DX: M94.0 Chondrocostal junction syndrome [Tietze] (principal); M54.9 Dorsalgia, unspecified
CPT/HCPCS: 36415; 71046-TC-FY; 80053; 84703; 85025; 85379; 93005; 93010; 99285-25

== ENCOUNTER 2021-07-01 17:44 | Emergency (ER) | payer OTHER ==
[2021-07-01 18:23] VITALS: BP 126/85; PULSE 78; TEMP 98.4; BMI 31.0
[2021-07-01] MEDS ORDERED: KETOROLAC TROMETHAMINE 30 MG/1 ML VIAL IM ONE (19:39)
[2021-07-01] MEDS ORDERED: DEXAMETHASONE LIQUID 0.5 MG/5 ML PO ONE (19:40)
[2021-07-01] MEDS ORDERED: DEXAMETHASONE SOD PHOSPHATE 10 MG/1 ML VIAL ONE (19:53)
[2021-07-01] MEDS ORDERED: KETOROLAC TROMETHAMINE 30 MG/1 ML VIAL ONE (19:54)
== END 2021-07-01 20:25 | disposition home or self-care (01) ==
LOC: JER 17:44
PROC: 3E023GC Introduction of Other Therapeutic Substance into Muscle, Percutaneous Approach (ICD-10-PCS; principal; 2021-07-01)
DX: R07.0 Pain in throat (principal)
CPT/HCPCS: 99284-25

== ENCOUNTER 2022-03-09 04:47 | Emergency (ER) | payer OTHER ==
[2022-03-09 05:01] VITALS: BP 132/77; RESP 20; TEMP 97.8; BMI 31.7
[2022-03-09] MEDS ORDERED: diphenhydrAMINE HCL 25 MG CAPSULE (FP) PO ONE ×2 (05:15→05:33)
[2022-03-09] MEDS ORDERED: predniSONE 20 MG TABLET (UD) PO ONE (05:15)
[2022-03-09] MEDS ORDERED: FAMOTIDINE 10 MG TABLET PO ONE (05:15)
[2022-03-09] MEDS ORDERED: FAMOTIDINE 10 MG TABLET ONE (05:33)
[2022-03-09] MEDS ORDERED: predniSONE 20 MG TABLET (UD) ONE (05:33)
[2022-03-09 06:21] VITALS: PULSE 98
== END 2022-03-09 06:27 | disposition home or self-care (01) ==
LOC: JER 04:47
DX: T78.40XA Allergy, unspecified, initial encounter (principal)
CPT/HCPCS: 99283-25

== ENCOUNTER 2022-03-17 03:08 | Emergency (ER) | payer OTHER ==
[2022-03-17 03:27] VITALS: BP 122/84; PULSE 108; RESP 20; TEMP 99.1; BMI 36.8
[2022-03-17] MEDS ORDERED: predniSONE 20 MG TABLET (UD) PO ONE (04:05)
[2022-03-17] MEDS ORDERED: FAMOTIDINE 20 MG TABLET PO ONE (04:05)
[2022-03-17] MEDS ORDERED: predniSONE 20 MG TABLET (UD) ONE (04:08)
[2022-03-17] MEDS ORDERED: FAMOTIDINE 20 MG TABLET ONE (04:08)
== END 2022-03-17 04:21 | disposition home or self-care (01) ==
LOC: JER 03:08
DX: T78.40XA Allergy, unspecified, initial encounter (principal)
CPT/HCPCS: 99283-25

== ENCOUNTER 2022-07-08 08:07 | Emergency (ER) | payer OTHER ==
[2022-07-08] MEDS ORDERED: ONDANSETRON *ODT* 4 MG TABLET SL ONE (08:51)
[2022-07-08] MEDS ORDERED: ONDANSETRON *ODT* 4 MG TABLET ONE (08:53)
[2022-07-08 10:01] VITALS: BP 122/84; RESP 20; TEMP 98.3; BMI 36.3
[2022-07-08 10:30] VITALS: PULSE 91
== END 2022-07-08 10:31 | disposition home or self-care (01) ==
LOC: JER 08:07
DX: J18.9 Pneumonia, unspecified organism (principal)
CPT/HCPCS: 0241U-QW; 71045-TC-FY; 99284-25; Q0162

== ENCOUNTER 2024-01-23 03:08 | Emergency (ER) | payer OTHER ==
[2024-01-23 03:26] VITALS: BP 124/86; PULSE 103; RESP 22; TEMP 98; BMI 36.8
[2024-01-23] MEDS ORDERED: diazePAM 5 MG TABLET ONE (04:25)
[2024-01-23] MEDS ORDERED: LIDOCAINE 5% TOPICAL PATCH ONE (04:26)
[2024-01-23] MEDS: LIDOCAINE 5% TOPICAL PATCH TP ONE (04:31)
[2024-01-23] MEDS: diazePAM 5 MG TABLET PO ONE (04:31)
[2024-01-23] MEDS ORDERED: LIDOCAINE PATCH REMOVAL MC SCH (22:00)
== END 2024-01-23 06:11 | disposition home or self-care (01) ==
LOC: JER 03:08
DX: M54.50 Low back pain, unspecified (principal); M62.838 Other muscle spasm
CPT/HCPCS: 99283-25

== ENCOUNTER 2024-04-05 16:35 | Emergency (ER) | payer OTHER ==
[2024-04-05 16:58] VITALS: BP 151/90; PULSE 85; RESP 18; TEMP 98.3; BMI 34.2
== END 2024-04-05 18:37 | disposition home or self-care (01) ==
LOC: JER 16:35
DX: M25.512 Pain in left shoulder (principal); M54.2 Cervicalgia
CPT/HCPCS: 73030-TC-LT-FY; 99283-25